=== PATIENT | female | born 1980 | race Caucasian/White ===

== ENCOUNTER 2017-03-06 21:17 | Observation (INO) | payer OTHER ==
[~2017-03-06] VITALS: Ht 157.5 cm; Wt 78.9 kg
[~2017-03-06 21:17] MED LIST: ACET-8386 PO; CEPH250C16 PO
[2017-03-06 21:25] VITALS: BP 130/87
--- NOTE | 2017-03-06 21:26 | NUR ---
BIBA TO ER BED 7
--- NOTE | 2017-03-06 21:33 | NUR ---
36 y/o F BIBA W/C/O L ARM PAIN SINCE 1200 PM TODAY. PT ALSO STATES HAS CHEST PAIN TO R UPPER CHEST. MED HX DM, HTM, HIGH CHOLESTEROL. ER MD AT BEDSIDE EVALUATING PT.
[2017-03-06] MEDS ORDERED: ASPIRIN 81 MG TAB.CHEW PO ONE (21:35)
[2017-03-06] MEDS ORDERED: NITROGLYCERIN 2% 1 GM PKT TP ONE (21:35)
[2017-03-06] MEDS ORDERED: MORPHINE SULFATE 4 MG/ML SYR IVP ONE (21:35)
--- NOTE | 2017-03-06 21:51 | NUR ---
Olga walker in EDM - 03/06/17 at 2216 by TONEY MORPHINE 4 MG ADMINISTERED VIA IV to r fore arm. Pt tolerated well.
[2017-03-06] MEDS: MORPHINE SULFATE 4 MG/ML SYR ONE ×2 (21:58→22:14)
[2017-03-06 22:20] LABS: BASOPHILS # (AUTO) 0.1 K/uL (0.00-0.22); EOSINOPHILS # (AUTO) 0.1 K/uL (0-0.4); HEMATOCRIT 39.3 % (36-48); HEMOGLOBIN 13.5 g/dL (12.0-16.0); LYMPHOCYTES # (AUTO) 1.6 K/uL (2.5-16.5); MEAN CORPUSCULAR HEMOGLOBIN 30 pg (27-31); MEAN CORPUSCULAR HGB CONC 34 g/dL (33-37); MEAN CORPUSCULAR VOLUME 87 fL (80-94); MONOCYTES # (AUTO) 0.3 K/uL (0.8-1.0); NEUTROPHILS # (AUTO) 3.9 K/uL (1.8-7.7); PLATELET COUNT (AUTO) 119 K/uL (140-450); RED CELL DISTRIBUTION WIDTH 14.8 % (11.6-13.7)
[2017-03-06] MEDS ORDERED: INSULIN HUMAN REGULAR 100 UNITS/ML 10 ML VIAL IVP ONE (22:35)
[2017-03-06 22:36] LABS: ALBUMIN 3.4 g/dL (3.4-5.0); ANION GAP 15.1 (8-16); CARBON DIOXIDE 23.3 mmol/L (21-32); CREATININE 0.6 mg/dL (0.6-1.3); POTASSIUM 3.4 mmol/L (3.5-5.1)
[2017-03-06 22:45] LABS: CREATINE KINASE MB 0.1 ng/mL (0-3.6)
[2017-03-06 22:48] LABS: CHOL/HDL RATIO 10.2 (1-4.5); HDL CHOLESTEROL 24 mg/dL (40-60)
[2017-03-06 22:53] LABS: TRIGLYCERIDES 1312 mg/dL (30-150)
--- NOTE | 2017-03-06 23:23 | NUR ---
PT RESTING IN BED, VSS, NO S/S OF DISTRESS NOTED AT THE MOMENT.
[2017-03-07] MEDS ORDERED: SIMVASTATIN 20 MG TAB PO ONE (00:05)
[2017-03-07] MEDS ORDERED: FENOFIBRATE 48 MG TAB PO ONE (00:05)
[2017-03-07] MEDS ORDERED: INSULIN HUMAN REGULAR 100 UNITS/ML 10 ML VIAL IVP ONE (00:15)
[2017-03-07] MEDS ORDERED: NACL 0.9% 1,000 ML IV ONE (00:15)
[2017-03-07] MEDS ORDERED: MORPHINE SULFATE 2 MG/ML SYR IVP ONE (00:15)
--- NOTE | 2017-03-07 00:38 | NUR ---
CLASSIFICATION ANALYST CALLED REGARDING NEED OF MEDS ZOCOR, AND TRICOR. PER HOUSE SUP, HE WASNT UNABLE TO OVERWRITE MEDS. ER MD AND CHARGE NURSE NOTIFIED.
--- NOTE | 2017-03-07 01:22 | NUR ---
PT RESTING IN BED, VSS, C/O HEADACHE 08/30. ER MD RAQUEL COHEN.
[2017-03-07] MEDS ORDERED: IBUPROFEN 600 MG TAB PO ONE (01:25)
--- NOTE | 2017-03-07 01:58 | NUR ---
Patient appears to be resting comfortably in bed. Vital Signs within normal limits. Respirations even and unlabored.
[2017-03-07] MEDS: NACL 0.9% 1,000 ML IV SCH ×2 (02:01→19:30)
[2017-03-07] MEDS ORDERED: DEXTROSE 50% 50 ML SYR IVP PRN (02:05)
[2017-03-07] MEDS ORDERED: HYDROcodone/APAP 5/325 MG 1 TAB TAB PO PRN ×2 (02:05)
[2017-03-07] MEDS ORDERED: NITROGLYCERIN 0.4 MG TAB SL PRN (02:05)
[2017-03-07] MEDS ORDERED: ONDANSETRON 4 MG/2 ML VIAL IVP PRN (02:05)
[2017-03-07] MEDS ORDERED: POTASSIUM CHLORIDE 10 MEQ TABER PO SCH (02:15)
--- NOTE | 2017-03-07 02:22 | NUR ---
PT AMBULATED TO RESTROOM.
--- NOTE | 2017-03-07 02:25 | NUR ---
Patient will be admitted to care of DR HWANG. Admited to TELEMETRY. Will go to [id number]. Belongings list completed. Report to 112A.
--- NOTE | 2017-03-07 02:31 | NUR ---
PT TRANSFERED TO FLOOR VIA GURNEY, ACCMPANIED BY CHARGE NURSE AND EMT.
[2017-03-07 02:32] LABS: APPEARANCE,URINE SL CLOUDY (CLEAR); BILIRUBIN,URINE NEGATIVE (NEGATIVE); BLOOD, URINE NEGATIVE (NEGATIVE); COLOR,URINE YELLOW (YELLOW); LEUKOCYTE ESTERASE ,URINE NEGATIVE (NEGATIVE); NITRITE, URINE NEGATIVE (NEGATIVE); UGLUCOSE 2+ (NEGATIVE)
--- NOTE | 2017-03-07 02:35 | NUR ---
RECEIVED REPORT FROM CAMP COOK OVER PHONE FOR CONTINUITY OF CARE. PT BROUGHT VIA GURNEY MOMENTS LATER, PT IS A/OX4, ON ROOM AIR. PT HAS A RIGHT AC IV 20G. PT SKIN IS INTACT. SAFETY PRECAUTIONS IN PLACE. UPDATED BOARD. DISCUSSED PLAN OF CARE WITH PT, PT VERBALIZED UNDERSTANDING. VITAL SIGNS WITHIN NORMAL LIMITS. PT IN STABLE CONDITION, NO SIGNS OF DISTRESS NOTED. BED IN LOW POSITION, CALL LIGHT WITHIN REACH. WILL CONTINUE TO MONITOR.
[2017-03-07 02:39] LABS: BARBITURATE, URINE NEG. ng/ml (NEG <=200); BENZODIAZEPINE, URINE NEG. ng/mL (NEG <=200); CANNABINOID, URINE NEG. ng/mL (NEG <=50); COCAINE, URINE NEG. ng/mL (NEG <=300); OPIATE, URINE POS. ng/mL (NEG <=2000); PHENCYCLIDINE SCREEN,URINE NEG. ng/mL (NEG <=25)
[2017-03-07 02:44] LABS: RBC,URINE 0-5 (RARE) /HPF (0-5); WBC,URINE 0-5 (RARE) /HPF (0-5); YEAST,URINE Few /HPF (None Seen)
[2017-03-07 02:49] LABS: CREATINE KINASE MB 0.1 ng/mL (0-3.6)
[2017-03-07 03:34] VITALS: BP 131/88
[2017-03-07 04:00] VITALS: BP 113/69
[2017-03-07] MEDS: INSULIN LISPRO SLIDING SCALE 100 UNITS/ML VIAL SUBQ PRN ×4 (06:46→20:17)
[2017-03-07] MEDS: BLOOD GLUCOSE MONITORING 1 DEV DEV FS SCH ×3 (06:46→20:08)
[2017-03-07 07:07] LABS: CHOL/HDL RATIO 11.1 (1-4.5); HDL CHOLESTEROL 20 mg/dL (40-60); THYROID STIMULATING HORMONE 1.3 uIU/mL (0.34-3.74)
[2017-03-07 07:22] LABS: TRIGLYCERIDES 1042 mg/dL (30-150)
--- NOTE | 2017-03-07 07:32 | NUR ---
ENDORSED PT TO DAY SHIFT NURSE FOR CONTINUITY OF CARE. PT IN STABLE CONDITION, WITHOUT SIGNS OF DISTRESS.
[2017-03-07 07:40] VITALS: BP 134/83
--- NOTE | 2017-03-07 07:55 | NUR ---
PT RECEIVED FROM [facility] NURSE,IN BED AWAKE ALERT AND ORIENTED X4. PT IS RESPONSIVE TO VERBAL COMMAND APPROPRIATELY AND ABLE TO MAKE NEEDS KNOWN WELL. PT IS AMBULATORY WITHOUT ASSIST. DENIES ANY CHEST PAIN AT THIS TIME. NO RESP DISTRESS NOTED. IVF INFUSING ORDERED. V/A STABLE.
--- NOTE | 2017-03-07 09:06 | NUR ---
PATIENT HAS BEEN SCREENED AND CATEGORIZED MODERATE NUTRITION RISK. PATIENT WILL BE SEEN WITHIN 3-5 DAYS OF ADMISSION. 03/09/17-03/11/[address]
[2017-03-07] MEDS: ENOXAPARIN 40 MG/0.4 ML SYR SUBQ SCH (09:17)
[2017-03-07] MEDS: ATORVASTATIN 20 MG TAB PO SCH (09:17)
--- NOTE | 2017-03-07 10:30 | NUR ---
PT SITTING IN BED TALKING TO A VISITOR. NO ACUTE DISTRESS NOTED. PT REMAINS CHEST PAIN FREE. PT IS NORMAL SINUS RHYTHM ON THE MONITOR.
[2017-03-07 12:00] VITALS: BP 118/78
--- NOTE | 2017-03-07 13:46 | NUR ---
CM NOTE INSURANCE NOTIFIED THAT PATIENT HERE FOR OBSERVATION STATUS. CLINICAL INFO FAXED TO [facility] [phone].
[2017-03-07 16:00] VITALS: BP 132/76
--- NOTE | 2017-03-07 18:30 | NUR ---
PT IN BED AWAKE ALERT AND ORIENTED X4. PT IS NORMAL SINUS RHYTHM ON THE MONITOR. NO CHEST PAIN OR SOB. IVF REMAINS INFUSING ORDERED. PT IS AWARE OF NPO AFTER MINNIGHT FOR STRESS TEST BY DR MEDINA AT 0900. V/S STABLE.
--- NOTE | 2017-03-07 19:05 | NUR ---
RECEIVED REPORT FROM DAY SHIFT RN FOR CONTINUITY OF CARE. PT IS A/OX4, ON ROOM AIR. PT HAS A RIGHT AC IV 20G. PT SKIN IS INTACT. PT IS AMBULATORY WITH STEADY GAIT. SAFETY PRECAUTIONS IN PLACE. UPDATED BOARD. DISCUSSED PLAN OF CARE WITH PT, PT VERBALIZED UNDERSTANDING. VITAL SIGNS WITHIN NORMAL LIMITS. PT IN STABLE CONDITION, NO SIGNS OF DISTRESS NOTED. BED IN LOW POSITION, CALL LIGHT WITHIN REACH. WILL CONTINUE TO MONITOR.
[2017-03-07 20:00] VITALS: BP 120/82
[2017-03-08] VITALS: BP 133/78
[2017-03-08 04:00] VITALS: BP 117/74
[2017-03-08] MEDS: NACL 0.9% 1,000 ML IV SCH (04:41)
[2017-03-08] MEDS ORDERED: METF850T4 PO (06:16)
[2017-03-08] MEDS ORDERED: GEMF600T8 PO (06:16)
[2017-03-08] MEDS ORDERED: LISI2.5T5 PO (06:16)
[2017-03-08] MEDS ORDERED: SITA100T8 PO (06:16)
[2017-03-08] MEDS: BLOOD GLUCOSE MONITORING 1 DEV DEV FS SCH ×2 (06:51→12:03)
[2017-03-08] MEDS: INSULIN LISPRO SLIDING SCALE 100 UNITS/ML VIAL SUBQ PRN ×2 (06:51→13:29)
[2017-03-08 07:08] LABS: ANION GAP 13.7 (8-16); CARBON DIOXIDE 22.1 mmol/L (21-32); CREATININE 0.6 mg/dL (0.6-1.3); MAGNESIUM 1.6 mg/dL (1.8-2.4); POTASSIUM 3.8 mmol/L (3.5-5.1); TOTAL BILIRUBIN 1.1 mg/dL (0.0-1.0)
--- NOTE | 2017-03-08 07:20 | NUR ---
RECEIVED REPORT FROM NURSING TECHNICIAN, PT IS A/OX4, ON ROOM AIR. PT HAS A RIGHT AC IV 20G, INFUSING WELL. PT SKIN IS INTACT. SAFETY PRECAUTIONS IN PLACE. PT IS NPO FOR STRESS TEST TODAY. NO SIGNS OF DISTRESS NOTED. BED IN LOW POSITION, CALL LIGHT WITHIN REACH. WILL CONTINUE TO MONITOR.
--- NOTE | 2017-03-08 07:34 | NUR ---
ENDORSED PT TO DAY SHIFT RN FOR CONTINUITY OF CARE. PT IN STABLE CONDITION.
--- NOTE | 2017-03-08 08:35 | NUR ---
PT WENT FOR STRESS TEST, VITALS STABLE, NO S/S OF ACUTE DISTRESS NOTED.
[2017-03-08 09:04] VITALS: BP 112/76
--- NOTE | 2017-03-08 10:36 | NUR ---
STRESS TEST DONE. PATIENT TAKEN BACK TO HER ROOM IN STABLE CONDITION
--- NOTE | 2017-03-08 11:00 | NUR ---
PT BACK FROM STRESS TEST, PT SHOWED NO S/S OF ACUTE DISTRESS. TEST RESULT OF STRESS TEST WAS NEGATIVE. WILL CONTINUE TO MONITOR.
[2017-03-08] MEDS: ENOXAPARIN 40 MG/0.4 ML SYR SUBQ SCH (11:37)
[2017-03-08] MEDS: ATORVASTATIN 20 MG TAB PO SCH (11:46)
[2017-03-08 12:00] VITALS: BP 115/66
[2017-03-08] MEDS ORDERED: NAPR-54 PO (12:23)
--- NOTE | 2017-03-08 13:34 | NUR ---
Clinical review faxed to [facility] at [phone]
--- NOTE | 2017-03-08 14:00 | NUR ---
IV STOPPED AT THIS TIME. 800ML HAS BEEN INFUSED.
--- NOTE | 2017-03-08 14:35 | NUR ---
PT DISCHARGED PER MD ORDER. DISCHARGE INSTRUCTIONS AND MEDICATION TEACHINGS GIVEN. CHEST PAIN TEACHING MATERIAL PROVIDED. PT VERBALIZED UNDERSTANDING. PT DENIED PAIN AT THIS TIME. IV DC'ED, PRESSURE APPLIED, TIP IS INTACT. PT TOLERATED WELL. PT IS IN STABLE CONDITION AND LEFT W/ ALL HER BELONGINGS.
--- NOTE | 2017-05-01 19:47 | NUR ---
1L NS BOULS STRT 03/07/17 AT 999ML/HR. END TIME 01:30AM 03/08/17-NADR AT THIS TIME
== END 2017-03-08 14:35 | disposition home or self-care (01) ==
LOC: MED 21:17 → MTU 03-07 02:01
PROVIDERS: ADMIT Hospitalist; ATTEND Hospitalist
DX: R07.89 Other chest pain (principal); I10 Essential (primary) hypertension; E78.5 Hyperlipidemia, unspecified; E11.9 Type 2 diabetes mellitus without complications
CPT/HCPCS: 36415; 71010; 76700; 80053; 80305; 81001; 82043; 82550; 82553; 82948; 83690; 83735; 83880; 84443; 84484; 85025; 85379; 87081; 87086; 93005; 93017; 96361; 96372; 96374; 96375; 96376; 99285; G0378; J1650; J1815; J2270; J7030; Q0092

== ENCOUNTER 2017-04-13 16:40 | Emergency (ER) | payer OTHER ==
[~2017-04-13] VITALS: Ht 160 cm; Wt 73.9 kg
[~2017-04-13 16:40] MED LIST changes: -ACET-8386 PO; -CEPH250C16 PO; +GEMF600T8 PO; +LISI2.5T5 PO; +METF850T4 PO; +NAPR500T1 PO; +SITA100T8 PO
[2017-04-13 16:57] VITALS: BP 113/79
--- NOTE | 2017-04-13 17:08 | NUR ---
PT TRIAGED, AMBULATED TOLOBBY WAITING FOR ER BED. ERMD NOTIFIED OF PATIENT STATUS.
--- NOTE | 2017-04-13 17:55 | NUR ---
Patient to OF.
--- NOTE | 2017-04-13 18:09 | NUR ---
PATIENT PRESENTS TO ED WITH right 1st digit pain swelling redness x1 wk s/p cuticle tear . PT STATES . DENIES N/V/D; SKIN IS PINK/WARM/DRY; AAOX4 WITH EVEN AND STEADY GAIT; LUNGS CLEAR BL; HR EVEN AND REGULAR; PT DENIES ANY FEVER, CP, SOB, OR COUGH AT THIS TIME; PATIENT STATES PAIN OF 4/10 AT THIS TIME; VSS; PATIENT POSITIONED FOR COMFORT; HOB ELEVATED; BEDRAILS UP X2; BED DOWN. ER MD MADE AWARE OF PT STATUS.
[2017-04-13] MEDS: ETHYL CHLORIDE 105 ML SPR TP ONE (18:20)
[2017-04-13] MEDS: IBUPROFEN 800 MG TAB PO ONE (18:49)
--- NOTE | 2017-04-13 18:49 | NUR ---
MEDICATED FOR FINGER PAIN
--- NOTE | 2017-04-13 19:03 | NUR ---
Patient discharged with v/s stable. Written and verbal after care instructions given and explained. Patient alert, oriented and verbalized understanding of instructions. Ambulatory with steady gait. All questions addressed prior to discharge. ID band removed. Patient advised to follow up with PMD. Rx of motrin/clindamycin given. Patient educated on indication of medication including possible reaction and side effects. Opportunity to ask questions provided and answered.
[2017-04-13 19:07] VITALS: BP 135/82
== END 2017-04-13 19:03 | disposition home or self-care (01) ==
LOC: MED 16:40
DX: L03.011 Cellulitis of right finger (principal); E11.9 Type 2 diabetes mellitus without complications; I10 Essential (primary) hypertension; Z79.84 Long term (current) use of oral hypoglycemic drugs; Z79.899 Other long term (current) drug therapy
CPT/HCPCS: 82948; 90471; 90715; 99283

== ENCOUNTER 2018-07-03 19:10 | Emergency (ER) | payer OTHER ==
[~2018-07-03] VITALS: Ht 157.5 cm; Wt 77.1 kg
[~2018-07-03 19:10] MED LIST changes: +GEMF-65 PO; -GEMF600T8 PO; +METF-350 PO; -METF850T4 PO; +NAPR-54 PO; -NAPR500T1 PO
[2018-07-03 19:28] VITALS: BP 134/84
--- NOTE | 2018-07-03 19:32 | NUR ---
PT AMBULATED TO LOBBY WITH VSS. PROVIDED URINE.
[2018-07-03 20:36] LABS: BASOPHILS % (AUTO) 0.6 % (0.0-2.0); EOSINOPHILS # (AUTO) 0.2 K/uL (0-0.4); EOSINOPHILS % (AUTO) 2.6 % (0.0-4.0); HEMOGLOBIN 12.8 g/dL (12.0-16.0); LYMPHOCYTES # (AUTO) 1.5 K/uL (2.5-16.5); LYMPHOCYTES % (AUTO) 22.1 % (20.5-51.1); MEAN CORPUSCULAR HEMOGLOBIN 31 pg (27-31); MEAN CORPUSCULAR HGB CONC 35 g/dL (33-37); MEAN CORPUSCULAR VOLUME 88.9 fL (80-94); MONOCYTES # (AUTO) 0.3 K/uL (0.8-1.0); NEUTROPHILS # (AUTO) 4.8 K/uL (1.8-7.7); NEUTROPHILS % (AUTO) 69.7 % (42.2-75.2); PLATELET COUNT (AUTO) 177 K/uL (140-450); RED BLOOD CELL COUNT(AUTO) 4.17 MIL/uL (4.20-5.40); RED CELL DISTRIBUTION WIDTH 15.5 % (11.6-13.7); WHITE BLOOD COUNT (AUTO) 6.9 K/uL (4.8-10.8)
[2018-07-03 20:36] LABS: APPEARANCE,URINE CLEAR (CLEAR); BILIRUBIN,URINE NEGATIVE (NEGATIVE); BLOOD, URINE NEGATIVE (NEGATIVE); COLOR,URINE YELLOW (YELLOW); LEUKOCYTE ESTERASE ,URINE NEGATIVE (NEGATIVE); NITRITE, URINE NEGATIVE (NEGATIVE); PH,URINE 5.5 (5.0-9.0); UGLUCOSE NEGATIVE (NEGATIVE)
[2018-07-03 20:58] LABS: ALBUMIN 3.8 g/dL (3.4-5.0); CARBON DIOXIDE 27.7 mmol/L (21-32); CREATININE 0.9 mg/dL (0.6-1.3); POTASSIUM 3.7 mmol/L (3.5-5.1); TOTAL BILIRUBIN 0.8 mg/dL (0.0-1.0)
--- NOTE | 2018-07-03 22:29 | NUR ---
PT PRESENTS TO ED WITH C/O SUPRAPUBIC ABD PAIN X6 DAYS. HYSTERECTOMY DONE 06/05/18. NO VAGINAL BLEEDING OR DISCHARGE. 09/30 PAIN. VSS. AFEBRILE. AAO X 4, GCS 15, ABLE TO SPEAK WITH FULL COMPLETE SENTENCES. RESPIRATIONS EVEN AND UNLABORED, BL LUNG CLEAR. SKIN WARM/PINK/DRY, +PMSC. ABDOMEN SOFT, NON DISTENDED, ACTIVE BOWEL SOUND X4. SUPRAPUBIC SX SITE NO REDNESS, NO DISCHARGE. VSS, WILL CONTINEU TO MONITOR
[2018-07-03] MEDS ORDERED: MORPHINE SULFATE 4 MG/ML SYR IVP ONE (23:35)
--- NOTE | 2018-07-04 | NUR ---
PT SLEEPING, RESPIATIONS EVEN AND UNLABORED. VSS, NO ACUTE DISTRESS AT THIS TIME. WILL CONTINUE TO MONITOR
--- NOTE | 2018-07-04 01:11 | NUR ---
Dr. Perez evaluating patient at bedside.
--- NOTE | 2018-07-04 02:40 | NUR ---
Patient discharged with v/s stable. Written and verbal after care instructions given and explained. Patient alert, oriented and verbalized understanding of instructions. Ambulatory with steady gait. All questions addressed prior to discharge. ID band removed. Patient advised to follow up with PMD. Rx of ZOFRAN 4 MG, TYLENOL NO.3 given. Patient educated on indication of medication including possible reaction and side effects. Opportunity to ask questions provided and answered.
[2018-07-04 02:58] VITALS: BP 117/75
== END 2018-07-04 02:40 | disposition home or self-care (01) ==
LOC: MED 19:10
DX: N70.11 Chronic salpingitis (principal); N83.202 Unspecified ovarian cyst, left side; E11.9 Type 2 diabetes mellitus without complications; I10 Essential (primary) hypertension; Z90.49 Acquired absence of other specified parts of digestive tract; Z90.710 Acquired absence of both cervix and uterus; Z98.890 Other specified postprocedural states; Z88.0 Allergy status to penicillin; Z88.6 Allergy status to analgesic agent; Z88.5 Allergy status to narcotic agent; Z79.84 Long term (current) use of oral hypoglycemic drugs; Z79.899 Other long term (current) drug therapy; Z79.1 Long term (current) use of non-steroidal anti-inflammatories (NSAID)
CPT/HCPCS: 36415; 74176; 76856; 80053; 81003; 81025; 83690; 85025; 96374; 99284; J2270; Q0092

== ENCOUNTER 2021-04-29 08:23 | Day surgery (SDC) | payer OTHER, SELFPAY ==
[~2021-04-29] VITALS: Ht 160 cm; Wt 69.9 kg
[~2021-04-29 08:23] MED LIST changes: -GEMF-65 PO; +LISI2.5T14 PO; -LISI2.5T5 PO; -METF-350 PO; -NAPR-54 PO; -SITA100T8 PO
[2021-04-29] MEDS ORDERED: MIDAZOLAM 5 MG/5 ML VIAL ONE (10:23)
[2021-04-29] MEDS ORDERED: fentaNYL citrate 0.05 MG/ML VIAL ONE (10:23)
[2021-04-29] MEDS ORDERED: MIDAZOLAM 2 MG/2 ML VIAL IVP ONE (11:10)
== END 2021-04-29 11:53 | disposition home or self-care (01) ==
LOC: MDS 08:23 → MMU 08:24 → MDS 11:53
PROVIDERS: ATTEND Internal Medicine Gastroenterology
DX: R14.0 Abdominal distension (gaseous) (principal); K22.89 Other specified disease of esophagus; I10 Essential (primary) hypertension; E11.9 Type 2 diabetes mellitus without complications; Z88.0 Allergy status to penicillin; Z88.6 Allergy status to analgesic agent; Z79.84 Long term (current) use of oral hypoglycemic drugs; Z79.899 Other long term (current) drug therapy; Z90.710 Acquired absence of both cervix and uterus; Z90.49 Acquired absence of other specified parts of digestive tract; Z20.822 Contact with and (suspected) exposure to COVID-19
CPT/HCPCS: 43235; 87426; J2250; J3010

== ENCOUNTER 2022-08-25 21:23 | Emergency (ER) | payer OTHER ==
[~2022-08-25] VITALS: Ht 160 cm; Wt 70.3 kg
[2022-08-25 22:17] VITALS: BP 129/85
--- NOTE | 2022-08-25 22:31 | NUR ---
Dr. Edwards examining patient.
[2022-08-25] MEDS ORDERED: traMADol 50 MG TAB PO ONE (22:35)
[2022-08-25 22:49] LABS: BASOPHILS % (AUTO) 0.4 % (0.0-2.0); EOSINOPHILS # (AUTO) 0.2 K/uL (0-0.4); EOSINOPHILS % (AUTO) 2.6 % (0.0-4.0); HEMATOCRIT 39.2 % (36-48); HEMOGLOBIN 13.6 g/dL (12.0-16.0); LYMPHOCYTES # (AUTO) 1.8 K/uL (2.5-16.5); LYMPHOCYTES % (AUTO) 24.6 % (20.5-51.1); MEAN CORPUSCULAR HEMOGLOBIN 32 pg (27-31); MEAN CORPUSCULAR HGB CONC 35 g/dL (33-37); MEAN CORPUSCULAR VOLUME 91.1 fL (80-94); MONOCYTES # (AUTO) 0.3 K/uL (0.8-1.0); MONOCYTES % (AUTO) 4.5 % (1.7-9.3); NEUTROPHILS # (AUTO) 4.9 K/uL (1.8-7.7); NEUTROPHILS % (AUTO) 67.9 % (42.2-75.2); PLATELET COUNT (AUTO) 128 K/uL (140-450); RED CELL DISTRIBUTION WIDTH 15.9 % (11.6-13.7); WHITE BLOOD COUNT (AUTO) 7.2 K/uL (4.8-10.8)
[2022-08-25 22:50] LABS: APPEARANCE,URINE CLEAR (CLEAR); BILIRUBIN,URINE NEGATIVE (NEGATIVE); BLOOD, URINE NEGATIVE (NEGATIVE); COLOR,URINE YELLOW (YELLOW); LEUKOCYTE ESTERASE ,URINE NEGATIVE (NEGATIVE); NITRITE, URINE NEGATIVE (NEGATIVE); PH,URINE 6.5 (5.0-9.0); UGLUCOSE 3+ (NEGATIVE)
--- NOTE | 2022-08-25 23:08 | NUR ---
Patient taken to CT scan via WC.
[2022-08-25 23:09] LABS: ALBUMIN 3.9 g/dL (3.4-5.0); ANION GAP 14.4 (8-16); CARBON DIOXIDE 23.2 mmol/L (21-32); CREATININE 0.8 mg/dL (0.6-1.3); POTASSIUM 3.6 mmol/L (3.5-5.1)
--- NOTE | 2022-08-25 23:47 | NUR ---
Patient returned back from Ultrasound and taken to bed 1.
--- NOTE | 2022-08-26 00:01 | NUR ---
ASSUMED CARE C/O LLQ PAIN , NO N/V. PAIN MEDS GIVEN NOT EFFECTIVE
--- NOTE | 2022-08-26 01:50 | NUR ---
ABDO PAIN PERSIST, MADE AWARE , WAITING FOR ADDITIONAL ORDER
[2022-08-26] MEDS ORDERED: MORPHINE SULFATE 4 MG/ML SYR IM ONE (01:55)
--- NOTE | 2022-08-26 04:20 | NUR ---
MINIMAL DISCOMFORT , WAITING FOR CT RESULT . PT UPDATED
[2022-08-26] MEDS ORDERED: TRAM50TA3 PO (04:24)
[2022-08-26] MEDS ORDERED: ONDA-188 PO (04:24)
[2022-08-26 04:51] VITALS: BP 145/100
--- NOTE | 2022-08-26 04:53 | NUR ---
Patient discharged with v/s stable. Written and verbal after care instructions given and explained. Patient verbalized understanding. Ambulatory with FRIEND to home. All questions addressed prior to discharge. Advised to follow up with PMD.
== END 2022-08-26 04:45 | disposition home or self-care (01) ==
LOC: MED 21:23
DX: R10.32 Left lower quadrant pain (principal); I10 Essential (primary) hypertension; E11.9 Type 2 diabetes mellitus without complications; Z88.0 Allergy status to penicillin; Z88.5 Allergy status to narcotic agent; Z88.8 Allergy status to other drugs, medicaments and biological substances; Z79.4 Long term (current) use of insulin; Z79.899 Other long term (current) drug therapy
CPT/HCPCS: 36415; 74176; 76856; 80053; 81003; 81025; 83690; 85025; 93976; 96372; 99285; J2270

== ENCOUNTER 2023-08-13 15:19 | Emergency (ER) | payer OTHER ==
[~2023-08-13] VITALS: Ht 160 cm; Wt 68.9 kg
[~2023-08-13 15:19] MED LIST changes: +ONDA-188 PO; +TRAM50TA3 PO
[2023-08-13 15:36] VITALS: BP 94/78; PULSE 102; RESP 20; TEMP 98.4; O2SAT 100
[2023-08-13 16:48] LABS: APPEARANCE,URINE CLEAR (CLEAR); BILIRUBIN,URINE NEGATIVE (NEGATIVE); BLOOD, URINE NEGATIVE (NEGATIVE); COLOR,URINE YELLOW (YELLOW); LEUKOCYTE ESTERASE ,URINE NEGATIVE (NEGATIVE); NITRITE, URINE NEGATIVE (NEGATIVE); PROTEIN,URINE NEGATIVE (NEGATIVE); UGLUCOSE 3+ (NEGATIVE); UROBILINOGEN,URINE 0.2 EU/dL (0.2 - 1)
[2023-08-13 17:05] LABS: BASOPHILS % (AUTO) 0.4 % (0.0-2.0); EOSINOPHILS # (AUTO) 0.1 K/uL (0-0.4); EOSINOPHILS % (AUTO) 0.8 % (0.0-4.0); HEMATOCRIT 39.8 % (36-48); LYMPHOCYTES # (AUTO) 1.4 K/uL (2.5-16.5); LYMPHOCYTES % (AUTO) 20.1 % (20.5-51.1); MEAN CORPUSCULAR HEMOGLOBIN 32 pg (27-31); MEAN CORPUSCULAR HGB CONC 35 g/dL (33-37); MEAN CORPUSCULAR VOLUME 91.3 fL (80-94); MONOCYTES # (AUTO) 0.5 K/uL (0.8-1.0); MONOCYTES % (AUTO) 6.7 % (1.7-9.3); PLATELET COUNT (AUTO) 147 K/uL (140-450); RED BLOOD CELL COUNT(AUTO) 4.36 MIL/uL (4.20-5.40); RED CELL DISTRIBUTION WIDTH 14.3 % (11.6-13.7)
[2023-08-13 17:26] LABS: ANION GAP 15.6 (8-16); CALCIUM 8.9 mg/dL (8.5-10.1); CARBON DIOXIDE 22.9 mmol/L (21-32); CREATININE 0.9 mg/dL (0.6-1.3); POTASSIUM 3.5 mmol/L (3.5-5.1); TOTAL BILIRUBIN 1.1 mg/dL (0.0-1.0); TOTAL PROTEIN, SERUM 7.6 g/dL (6.4-8.2)
[2023-08-13] MEDS: ACETAMINOPHEN 325 MG TAB PO ONE ×2 (17:42→21:37)
[2023-08-13 21:50] VITALS: BP 117/71; PULSE 83; RESP 20; TEMP 98.4; O2SAT 100
== END 2023-08-13 22:08 | disposition home or self-care (01) ==
LOC: MED 15:19
DX: R10.31 Right lower quadrant pain (principal); R11.0 Nausea; R30.0 Dysuria; E11.9 Type 2 diabetes mellitus without complications; I10 Essential (primary) hypertension; Z79.4 Long term (current) use of insulin; Z79.899 Other long term (current) drug therapy
CPT/HCPCS: 36415; 74177; 76856; 80053; 81003; 81025; 83690; 85025; 93976; 99285; Q9967

== ENCOUNTER 2023-08-31 18:29 | Emergency (ER) | payer OTHER ==
[~2023-08-31] VITALS: Ht 160 cm; Wt 68.9 kg
[2023-08-31 18:33] VITALS: BP 100/76; PULSE 83; RESP 18; TEMP 97.6; O2SAT 99
[2023-08-31 18:51] LABS: APPEARANCE,URINE CLEAR (CLEAR); BILIRUBIN,URINE NEGATIVE (NEGATIVE); BLOOD, URINE NEGATIVE (NEGATIVE); COLOR,URINE YELLOW (YELLOW); LEUKOCYTE ESTERASE ,URINE NEGATIVE (NEGATIVE); NITRITE, URINE POSITIVE (NEGATIVE); PH,URINE 6.5 (5.0-9.0); PROTEIN,URINE NEGATIVE (NEGATIVE); UGLUCOSE 3+ (NEGATIVE); UROBILINOGEN,URINE 0.2 EU/dL (0.2 - 1)
[2023-08-31 18:55] VITALS: O2SAT 98
[2023-08-31 19:19] LABS: BACTERIA,URINE FEW /HPF (None Seen); MUCUS,URINE None Seen /LPF (None Seen); RBC,URINE 0-5 /HPF (0-5); SQUAMOUS EPITHELIAL CELL,UR 0-3 (FEW) /LPF (0-3 (FEW)); WBC,URINE 0-5 /HPF (0-5)
[2023-08-31 19:20] LABS: CALCIUM OXALATE CRYSTALS,UR None Seen /HPF (None Seen); TRICHOMONAS,URINE None Seen /HPF (None Seen); WHITE BLOOD CELL CASTS,URINE None Seen /LPF (None Seen); YEAST,URINE None Seen /HPF (None Seen)
[2023-08-31] MEDS: ONDANSETRON 4 MG ODT PO ONE (19:31)
[2023-08-31] MEDS: MORPHINE SULFATE 4 MG/ML SYR IM ONE (20:02)
[2023-08-31] MEDS ORDERED: TRAM-748 PO (20:04)
[2023-08-31] MEDS ORDERED: ACET-10509 PO (20:04)
== END 2023-08-31 20:24 | disposition home or self-care (01) ==
LOC: MED 18:29
DX: R10.2 Pelvic and perineal pain (principal); N83.201 Unspecified ovarian cyst, right side; E11.9 Type 2 diabetes mellitus without complications; I10 Essential (primary) hypertension; Z79.4 Long term (current) use of insulin; Z79.899 Other long term (current) drug therapy; Z88.0 Allergy status to penicillin; Z79.1 Long term (current) use of non-steroidal anti-inflammatories (NSAID); Z88.8 Allergy status to other drugs, medicaments and biological substances
CPT/HCPCS: 81001; 81025; 96372; 99283; J2270; Q0162

== ENCOUNTER 2023-10-16 11:04 | Emergency (ER) | payer OTHER ==
[~2023-10-16] VITALS: Ht 160 cm; Wt 68.9 kg
[~2023-10-16 11:04] MED LIST changes: +ACET-10509 PO; +TRAM-748 PO
[2023-10-16 11:33] VITALS: BP 119/73; PULSE 72; RESP 16; TEMP 97.1; O2SAT 100
[2023-10-16 12:35] LABS: BASOPHILS % (AUTO) 0.5 % (0.0-2.0); EOSINOPHILS # (AUTO) 0.4 K/uL (0-0.4); EOSINOPHILS % (AUTO) 6.9 % (0.0-4.0); HEMATOCRIT 36.3 % (36-48); HEMOGLOBIN 12.6 g/dL (12.0-16.0); LYMPHOCYTES # (AUTO) 1.4 K/uL (2.5-16.5); LYMPHOCYTES % (AUTO) 22.3 % (20.5-51.1); MEAN CORPUSCULAR HEMOGLOBIN 32 pg (27-31); MEAN CORPUSCULAR HGB CONC 35 g/dL (33-37); MONOCYTES # (AUTO) 0.2 K/uL (0.8-1.0); MONOCYTES % (AUTO) 3.9 % (1.7-9.3); NEUTROPHILS # (AUTO) 4.3 K/uL (1.8-7.7); NEUTROPHILS % (AUTO) 66.4 % (42.2-75.2); PLATELET COUNT (AUTO) 179 K/uL (140-450); RED BLOOD CELL COUNT(AUTO) 3.95 MIL/uL (4.20-5.40); RED CELL DISTRIBUTION WIDTH 14.3 % (11.6-13.7); WHITE BLOOD COUNT (AUTO) 6.4 K/uL (4.8-10.8)
[2023-10-16 12:53] LABS: ANION GAP 12.3 (8-16); CALCIUM 8.8 mg/dL (8.5-10.1); CARBON DIOXIDE 24.4 mmol/L (21-32); CREATININE 0.7 mg/dL (0.6-1.3); POTASSIUM 3.7 mmol/L (3.5-5.1)
[2023-10-16 13:01] LABS: ALBUMIN 4.2 g/dL (3.4-5.0); BILIRUBIN,DIRECT 0.2 mg/dL (0.0-0.3); TOTAL BILIRUBIN 0.7 mg/dL (0.0-1.0); TOTAL PROTEIN, SERUM 7.7 g/dL (6.4-8.2)
[2023-10-16 13:52] LABS: APPEARANCE,URINE CLEAR (CLEAR); BILIRUBIN,URINE NEGATIVE (NEGATIVE); BLOOD, URINE NEGATIVE (NEGATIVE); COLOR,URINE YELLOW (YELLOW); LEUKOCYTE ESTERASE ,URINE NEGATIVE (NEGATIVE); NITRITE, URINE NEGATIVE (NEGATIVE); PH,URINE 5.5 (5.0-9.0); PROTEIN,URINE NEGATIVE (NEGATIVE); UGLUCOSE 3+ (NEGATIVE); UROBILINOGEN,URINE 0.2 EU/dL (0.2 - 1)
[2023-10-16 14:00] LABS: RBC,URINE 0-5 /HPF (0-5)
[2023-10-16 14:01] LABS: WBC,URINE 0-5 /HPF (0-5)
[2023-10-16 14:02] LABS: BACTERIA,URINE FEW /HPF (None Seen); SQUAMOUS EPITHELIAL CELL,UR 0-3 (FEW) /LPF (0-3 (FEW)); YEAST,URINE Few /HPF (None Seen)
[2023-10-16 15:00] VITALS: O2SAT 100
[2023-10-16] MEDS: ACETAMINOPHEN EXTRA STRENGTH 500 MG TAB PO ONE (15:21)
[2023-10-16] MEDS ORDERED: ACET-10509 PO (15:36)
[2023-10-16] MEDS ORDERED: SULF-59 PO (15:36)
[2023-10-16 15:42] LABS: ALCOHOL, BLOOD < 3 mg/dL (<10); SALICYLATE < 2.8 mg/dL (2.8-20.0)
[2023-10-16 15:51] VITALS: BP 112/75; PULSE 75; RESP 18; TEMP 98; O2SAT 100
[2023-10-16 17:36] LABS: AMPHETAMINE, URINE NEGATIVE ng/ml (NEG <=1000); BARBITURATE, URINE NEGATIVE ng/ml (NEG <=200); BENZODIAZEPINE, URINE NEGATIVE ng/mL (NEG <=200); CANNABINOID, URINE POSITIVE ng/mL (NEG <=50); COCAINE, URINE NEGATIVE ng/mL (NEG <=300); OPIATE, URINE POSITIVE ng/mL (NEG <=2000); PHENCYCLIDINE SCREEN,URINE NEGATIVE ng/mL (NEG <=25)
== END 2023-10-16 15:51 | disposition home or self-care (01) ==
LOC: MED 11:04
DX: L03.311 Cellulitis of abdominal wall (principal); E11.9 Type 2 diabetes mellitus without complications; I10 Essential (primary) hypertension; Z79.1 Long term (current) use of non-steroidal anti-inflammatories (NSAID); Z79.899 Other long term (current) drug therapy; Z98.890 Other specified postprocedural states; Z88.0 Allergy status to penicillin; Z88.6 Allergy status to analgesic agent; Z88.5 Allergy status to narcotic agent
CPT/HCPCS: 36415; 74176; 80048; 80076; 80305; 81001; 81025; 83690; 85025; 87086; 99284; G0480; G0482

== ENCOUNTER 2023-11-19 09:38 | Emergency (ER) | payer OTHER ==
[~2023-11-19] VITALS: Ht 160 cm; Wt 68.0 kg
[~2023-11-19 09:38] MED LIST changes: +SULF-59 PO
[2023-11-19 10:13] VITALS: BP 114/75; PULSE 78; RESP 18; TEMP 97.7; O2SAT 100
[2023-11-19 10:30] VITALS: O2SAT 98
[2023-11-19 10:46] LABS: BASOPHILS % (AUTO) 0.4 % (0.0-2.0); EOSINOPHILS # (AUTO) 0.1 K/uL (0-0.4); HEMATOCRIT 36.1 % (36-48); HEMOGLOBIN 12.5 g/dL (12.0-16.0); LYMPHOCYTES # (AUTO) 1.3 K/uL (2.5-16.5); LYMPHOCYTES % (AUTO) 30.3 % (20.5-51.1); MEAN CORPUSCULAR HEMOGLOBIN 32 pg (27-31); MEAN CORPUSCULAR HGB CONC 35 g/dL (33-37); MEAN CORPUSCULAR VOLUME 93.3 fL (80-94); MONOCYTES # (AUTO) 0.3 K/uL (0.8-1.0); MONOCYTES % (AUTO) 5.7 % (1.7-9.3); NEUTROPHILS # (AUTO) 2.7 K/uL (1.8-7.7); NEUTROPHILS % (AUTO) 61.6 % (42.2-75.2); PLATELET COUNT (AUTO) 142 K/uL (140-450); RED BLOOD CELL COUNT(AUTO) 3.87 MIL/uL (4.20-5.40); RED CELL DISTRIBUTION WIDTH 14.4 % (11.6-13.7); WHITE BLOOD COUNT (AUTO) 4.5 K/uL (4.8-10.8)
[2023-11-19 11:01] LABS: ANION GAP 12.3 (8-16); CALCIUM 8.9 mg/dL (8.5-10.1); CARBON DIOXIDE 25.8 mmol/L (21-32); CREATININE 0.8 mg/dL (0.6-1.3); POTASSIUM 4.1 mmol/L (3.5-5.1)
[2023-11-19 11:05] LABS: ALBUMIN 4.2 g/dL (3.4-5.0); BILIRUBIN,DIRECT 0.2 mg/dL (0.0-0.3); TOTAL PROTEIN, SERUM 7.5 g/dL (6.4-8.2)
[2023-11-19] MEDS: ONDANSETRON 4 MG ODT PO ONE (11:13)
[2023-11-19] MEDS: MORPHINE SULFATE 4 MG/ML SYR IM ONE (11:13)
[2023-11-19 11:35] LABS: APPEARANCE,URINE CLEAR (CLEAR); BILIRUBIN,URINE NEGATIVE (NEGATIVE); BLOOD, URINE NEGATIVE (NEGATIVE); COLOR,URINE YELLOW (YELLOW); LEUKOCYTE ESTERASE ,URINE NEGATIVE (NEGATIVE); NITRITE, URINE NEGATIVE (NEGATIVE); PH,URINE 5.5 (5.0-9.0); PROTEIN,URINE NEGATIVE (NEGATIVE); UGLUCOSE 3+ (NEGATIVE); UROBILINOGEN,URINE 0.2 EU/dL (0.2 - 1)
[2023-11-19 11:40] VITALS: BP 107/86; PULSE 80; RESP 18; TEMP 98; O2SAT 100
[2023-11-19 11:49] LABS: RBC,URINE 0-5 /HPF (0-5); WBC,URINE 0-5 /HPF (0-5)
[2023-11-19 11:50] LABS: BACTERIA,URINE FEW /HPF (None Seen); CALCIUM OXALATE CRYSTALS,UR None Seen /HPF (None Seen); MUCUS,URINE None Seen /LPF (None Seen); SQUAMOUS EPITHELIAL CELL,UR 0-3 (FEW) /LPF (0-3 (FEW)); TRICHOMONAS,URINE None Seen /HPF (None Seen); WHITE BLOOD CELL CASTS,URINE None Seen /LPF (None Seen)
[2023-11-19 11:51] LABS: COARSE GRANULAR CASTS,URINE None Seen /LPF (None Seen); CYSTINE CRYSTALS,URINE None Seen /HPF (None Seen); FATTY CASTS,URINE None Seen /LPF (None Seen); FINE GRANULAR CASTS,URINE None Seen /LPF (None Seen); HYALINE CASTS, URINE None Seen /LPF (None Seen); OTHER CASTS, URINE None Seen /LPF (None Seen); OTHER CRYSTALS,URINE None Seen /HPF (None Seen); RED BLOOD CELL CASTS,URINE None Seen /LPF (None Seen); TRIPLE PHOSPHATE CRYSTAL,UR None Seen /HPF (None Seen); URIC ACID CRYSTALS,URINE None Seen /HPF (None Seen); URINE AMORPHOUS PHOSPHATES None Seen /HPF (None Seen); URINE AMORPHOUS URATE None Seen /HPF (None Seen); WAXY CASTS,URINE None Seen /LPF (None Seen); YEAST,URINE Moderate /HPF (None Seen)
[2023-11-19] MEDS ORDERED: BEN10 PO (12:02)
[2023-11-19] MEDS: DICYCLOMINE 10 MG CAP PO ONE (12:12)
== END 2023-11-19 12:26 | disposition home or self-care (01) ==
LOC: MED 09:38
DX: R10.13 Epigastric pain (principal); R10.30 Lower abdominal pain, unspecified; R63.8 Other symptoms and signs concerning food and fluid intake; E11.9 Type 2 diabetes mellitus without complications; I10 Essential (primary) hypertension; Z90.49 Acquired absence of other specified parts of digestive tract; Z98.890 Other specified postprocedural states; Z79.899 Other long term (current) drug therapy; Z88.0 Allergy status to penicillin; Z88.5 Allergy status to narcotic agent; Z88.6 Allergy status to analgesic agent
CPT/HCPCS: 36415; 74176; 80048; 80076; 81001; 81025; 83690; 85025; 96372; 99285; J2270; Q0162

== ENCOUNTER 2024-01-04 09:10 | Emergency (ER) | payer OTHER ==
[~2024-01-04] VITALS: Ht 160 cm; Wt 67.6 kg
[~2024-01-04 09:10] MED LIST changes: -ACET-10509 PO; +ACET500T99 PO; +BEN10 PO
[2024-01-04 09:18] VITALS: BP 117/77; PULSE 72; RESP 16; TEMP 98.2; O2SAT 100
[2024-01-04 09:43] LABS: APPEARANCE,URINE CLEAR (CLEAR); BILIRUBIN,URINE NEGATIVE (NEGATIVE); BLOOD, URINE NEGATIVE (NEGATIVE); COLOR,URINE YELLOW (YELLOW); LEUKOCYTE ESTERASE ,URINE NEGATIVE (NEGATIVE); NITRITE, URINE NEGATIVE (NEGATIVE); PROTEIN,URINE NEGATIVE (NEGATIVE); UGLUCOSE 3+ (NEGATIVE); UROBILINOGEN,URINE 0.2 EU/dL (0.2 - 1)
[2024-01-04 10:08] LABS: BASOPHILS % (AUTO) 0.2 % (0.0-2.0); EOSINOPHILS # (AUTO) 0.1 K/uL (0-0.4); EOSINOPHILS % (AUTO) 2.1 % (0.0-4.0); HEMATOCRIT 37.5 % (36-48); HEMOGLOBIN 13.1 g/dL (12.0-16.0); LYMPHOCYTES % (AUTO) 19.6 % (20.5-51.1); MEAN CORPUSCULAR HEMOGLOBIN 33 pg (27-31); MEAN CORPUSCULAR HGB CONC 35 g/dL (33-37); MEAN CORPUSCULAR VOLUME 93.5 fL (80-94); MONOCYTES # (AUTO) 0.2 K/uL (0.8-1.0); MONOCYTES % (AUTO) 4.8 % (1.7-9.3); NEUTROPHILS # (AUTO) 3.7 K/uL (1.8-7.7); NEUTROPHILS % (AUTO) 73.3 % (42.2-75.2); PLATELET COUNT (AUTO) 144 K/uL (140-450); RED BLOOD CELL COUNT(AUTO) 4.01 MIL/uL (4.20-5.40); RED CELL DISTRIBUTION WIDTH 13.8 % (11.6-13.7); WHITE BLOOD COUNT (AUTO) 5.1 K/uL (4.8-10.8)
[2024-01-04 10:28] LABS: ANION GAP 13.6 (8-16); CALCIUM 8.9 mg/dL (8.5-10.1); CARBON DIOXIDE 25.2 mmol/L (21-32); CREATININE 0.8 mg/dL (0.6-1.3); POTASSIUM 3.8 mmol/L (3.5-5.1)
[2024-01-04 10:31] LABS: ALBUMIN 4.1 g/dL (3.4-5.0); BILIRUBIN,DIRECT 0.3 mg/dL (0.0-0.3); TOTAL BILIRUBIN 1.1 mg/dL (0.0-1.0); TOTAL PROTEIN, SERUM 7.4 g/dL (6.4-8.2)
[2024-01-04] MEDS ORDERED: ACET-8905 PO (11:00)
[2024-01-04] MEDS ORDERED: ONDA8TAB87 PO (11:00)
[2024-01-04] MEDS: MORPHINE SULFATE 4 MG/ML SYR IM ONE (11:02)
[2024-01-04 11:09] VITALS: BP 106/62; PULSE 76; RESP 16; TEMP 36.78072; O2SAT 100
== END 2024-01-04 11:09 | disposition home or self-care (01) ==
LOC: MED 09:10
DX: R10.11 Right upper quadrant pain (principal); R11.0 Nausea; E11.9 Type 2 diabetes mellitus without complications; I10 Essential (primary) hypertension; Z90.49 Acquired absence of other specified parts of digestive tract; Z98.890 Other specified postprocedural states; Z79.899 Other long term (current) drug therapy; Z88.0 Allergy status to penicillin; Z88.5 Allergy status to narcotic agent; Z88.6 Allergy status to analgesic agent
CPT/HCPCS: 36415; 80048; 80076; 81003; 81025; 83690; 85025; 96372; 99283; J2270